=== PATIENT | female | born 1945 | race African-American/Black ===

== ENCOUNTER → 2021-03-29 | Outpatient (CLI) | payer OTHER ==
[~2021-03-29] MED LIST: ASA81BEC PO; BENICAR20 MG PO; BENICAR40 MG PO; FISH OIL 1,0001 EAC9 PO; HYDROCHLOROTHIA25 M2 PO; K2 PLUS D3 TAB1 EACH PO; LIPITOR 20 MG T20 M1 PO; METFORMIN HCL500 MG PO; MICARDIS 80 MG80 MG PO; NORCO 10-325 T1 EACH PO; OMEGA-31000 M1 PO; SPIRONOLACTONE25 MG PO; TURMERIC500 M2 PO; TYLENOL325 MG PO
[2021-03-29 09:22] LABS: HEMATOCRIT 40.8 % (37.0-47.0); HEMOGLOBIN 13.2 gm/dL (12.0-15.0); MCH 27.4 pg (26.0-34.0); MCHC 32.4 g/dL (28.0-37.0); MCV 84.6 fL (80.0-100.0); RBC 4.83 mil/uL (4.20-5.00); WBC 8.1 thou/uL (4.0-11.0)
[2021-03-29 09:27] LABS: ALBUMIN 3.6 g/dL (3.4-5.0); CALCIUM 9.3 mg/dL (8.5-10.1); CREATININE 1.4 mg/dL (0.6-1.0); POTASSIUM 4.3 mmol/L (3.5-5.1)
[2021-03-29 09:32] LABS: URINE BILIRUBIN NEGATIVE (Negative); URINE BLOOD NEGATIVE (Negative); URINE CLARITY CLEAR; URINE COLOR YELLOW; URINE GLUCOSE-RANDOM* NEGATIVE (Negative); URINE KETONES NEGATIVE (Negative); URINE LEUKOCYTES-REFLEX NEGATIVE (Negative); URINE NITRITE-REFLEX NEGATIVE (Negative); URINE PROTEIN (DIPSTICK) NEGATIVE (Negative); URINE SPECIFIC GRAVITY <= 1.005 (1.005-1.035); URINE UROBILINOGEN 0.2 E.U./dl (0.2-1.0)
[2021-03-29 09:35] LABS: INR 0.92; PROTIME 10.1 Seconds (10.5-12.1)
[2021-03-30 01:06] LABS: GLYCOHEMOGLOBIN (HGB A1C) 7.2 % (4.8-5.6)
== END ==
LOC: PAC 08:24
PROVIDERS: ATTEND Orthopaedic Surgery
DX: M17.11 Unilateral primary osteoarthritis, right knee (principal)